=== PATIENT | male | born 1970 | race Two or more races ===

== ENCOUNTER 2016-08-09 11:07 | Observation (INO) | payer SELFPAY ==
[2016-08-09] MEDS ORDERED: Sodium Chloride 0.9% 1,000 ML IV STA (11:30)
--- NOTE | 2016-08-09 11:33 | ED PDOC ---
HPI: General Adult Time Seen by Provider: 08/09/16 11:20 Chief Complaint (Nursing): Syncope Chief Complaint (Provider): Syncope History Per: Patient History/Exam Limitations: no limitations Onset/Duration Of Symptoms: Days (Today) Current Symptoms Are (Timing): Better Additional Complaint(s): Pt. was at a court for landlord/tenant issues. He started getting light-headed , had a nonbloody vomit episode and then next thing he knows, he is in the ambulance. Pt. states his back is hurting across lower, similar to old. No new injury. Has urgency of urination, last urination was 2 hrs ago. Has mild abd pain across lower. No numbness, tingles, incontinence, constipation. No dyspnea, chest pain, headaches. Not dizzy currently. No dyspnea. Past Medical History Reviewed: Nursing Documentation, Vital Signs Vital Signs: Last Vital Signs Temp 99.1 F 08/09/16 11:12 Pulse 92 H 08/09/16 11:12 Resp 20 08/09/16 11:12 BP 152/96 H 08/09/16 11:12 Pulse Ox 100 08/09/16 14:24 - Medical History PMH: Anxiety, Back Problems, Depression, HTN - Surgical History Surgical History: No Surg Hx - Family History Family History: States: Unknown Family Hx - Social History Current smoker - smoking cessation education provided: No Alcohol: None Drugs: Denies - Allergies Allergies/Adverse Reactions: Allergies Allergy/AdvReac Type Severity Reaction Status Date / Time No Known Allergies Allergy Verified 08/09/16 11:23 Review of Systems ROS Statement: Except As Marked, All Systems Reviewed And Found Negative Cardiovascular: Positive for: Light Headedness Gastrointestinal: Positive for: Nausea, Vomiting, Abdominal Pain Musculoskeletal: Positive for: Back Pain Neurological: Positive for: Dizziness Physical Exam - Reviewed Nursing Documentation Reviewed: Yes Vital Signs Reviewed: Yes - Physical Exam Appears: Positive for: Non-toxic, No Acute Distress Head Exam: Positive for: ATRAUMATIC, NORMAL INSPECTION, NORMOCEPHALIC Skin: Positive for: Normal Color, Warm, DRY Eye Exam: Positive for: EOMI, Normal appearance, PERRL ENT: Positive for: Normal ENT Inspection Neck: Positive for: Normal, Painless ROM, Supple Cardiovascular/Chest: Positive for: Regular Rate, Rhythm. Negative for: Edema Respiratory: Positive for: CNT, Normal Breath Sounds Gastrointestinal/Abdominal: Positive for: Normal Exam, Bowel Sounds, Soft, Tenderness (mild diffuse) Back: Positive for: Other (mild across lower) Extremity: Positive for: Normal ROM. Negative for: Tenderness, Pedal Edema Neurologic/Psych: Positive for: Alert, Oriented - Laboratory Results Result Diagrams: 08/09/16 12:03 08/09/16 12:03 Interpretation Of Abn Labs: 24.1 wbc - ECG ECG: Positive for: Interpreted By Me, Viewed By Me ECG Rhythm: Positive for: Normal QRS, Normal ST Segment, Sinus Rhythm O2 Sat by Pulse Oximetry: 100 Pulse Ox Interpretation: Normal - CT Scan/US ct Other Rad Studies (CT/US): Read By Radiologist Other Rad Interpretation: age indeterminant compression findings of L4, L5 - Progress ED Course And Treament: 1157: Being aggressive and does not want any blood work and evaluation. Demanding meds. Pt. now states he is trying to kick off heroine. 1410: Stable. Moving around and walking with no issues. Wants to go against medical advice and wants to go home. Pt. aware of findings and wbc elevation. Refusing any treatment and further evaluation. 1420: Stable. Now states he will stay for further evaluation. Pt. aggressive to staff. Will give ativan, 1mg. Will need admit for withdrawal and syncope; elevated wbc likely from withdrawal. 1450: Spoke with Dr. Kumar. Will admit tele. Stable. AAOx3. Disposition - Clinical Impression Clinical Impression: Opiate withdrawal, Back pain, Syncope - Patient ED Disposition Is Patient to be Admitted: Yes Counseled Patient/Family Regarding: Studies Performed, Diagnosis - Disposition Disposition Time: 14:24 Condition: FAIR - Pt Status Changed To: Hospital Disposition Of: Observation - POA Present On Arrival: None
--- NOTE | 2016-08-09 12:29 | CT ---
PROCEDURE: CT HEAD WITHOUT CONTRAST. HISTORY: headache COMPARISON: None available. TECHNIQUE: Axial computed tomography images were obtained through the head/brain without intravenous contrast. Coronal and sagittal reconstructed images.. Radiation dose: Total exam DLP = 1288.32 mGy-cm. This CT exam was performed using one or more of the following dose reduction techniques: Automated exposure control, adjustment of the mA and/or kV according to patient size, and/or use of iterative reconstruction technique. FINDINGS: HEMORRHAGE: No intracranial hemorrhage. BRAIN: No mass effect or edema. No atrophy or chronic microvascular ischemic changes. VENTRICLES: Unremarkable. No hydrocephalus. CALVARIUM: Unremarkable. PARANASAL SINUSES: Mucous retention cyst left maxillary sinus. Chronic ethmoid air cell disease bilaterally left greater than right. MASTOID AIR CELLS: Unremarkable as visualized. No inflammatory changes. OTHER FINDINGS: None. IMPRESSION: No acute intracranial abnormalities. No significant findings to account for the clinical presentation.
[2016-08-09 12:33] LABS: BASO % 0.2 % (0.0-2.0); EOS % 0.1 % (0.0-4.0); LYMPH # 2.1 K/uL (1.0-4.3); LYMPH % 8.8 % (20.0-40.0); MEAN CELL VOLUME 88.2 fl (80.0-94.0); MEAN CORPUSCULAR HEMOGLOBIN 30.6 pg (27.0-31.0); MEAN CORPUSCULAR HGB CONC 34.7 g/dL (33.0-37.0); MEAN PLATELET VOLUME 7.7 fl (7.2-11.7); MONO # 1.4 K/uL (0.0-0.8); MONO % 5.9 % (0.0-10.0); NEUT # 20.4 K/uL (1.8-7.0); NRBC % 0.1 % (0.0-0.0); PLATELET COUNT 338 K/uL (130-400); WHITE BLOOD COUNT 24.1 K/uL (4.8-10.8)
[2016-08-09 12:42] LABS: ALCOHOL SERUM < 10 mg/dl (0-10); ALKALINE PHOSPHATASE 104 U/L (38-126); ALT/SGPT 38 U/L (21-72); AST/SGOT 47 U/L (17-59); BLOOD UREA NITROGEN 8 mg/dl (9-20); CALCIUM 9.9 mg/dL (8.4-10.2); CARBON DIOXIDE 23 mmol/L (22-30); CHLORIDE 102 mmol/L (98-107); GFR AFRICAN-AMERICAN > 60; GLUCOSE,RANDOM 126 mg/dL (75-110); LIPASE 135 U/L (23-300); SODIUM 143 mmol/l (132-148); TOTAL PROTEIN 8.7 G/DL (6.3-8.2)
--- NOTE | 2016-08-09 13:03 | CT ---
PROCEDURE: CT Abdomen and Pelvis without intravenous contrast HISTORY: R/O stone COMPARISON: None. TECHNIQUE: Without contrast.. Contrast Dose: 0 Radiation dose: Total exam DLP = 1487.39 mGy-cm. This CT exam was performed using one or more of the following dose reduction techniques: Automated exposure control, adjustment of the mA and/or kV according to patient size, and/or use of iterative reconstruction technique. FINDINGS: LOWER THORAX: Very small hiatal hernia. LIVER: Hepatomegaly. The liver measures 22.3 cm craniocaudal. Smooth contour. No mass. No biliary ductal dilatation. GALLBLADDER AND BILE DUCTS: Unremarkable. PANCREAS: Unremarkable. No gross lesion or ductal dilatation. SPLEEN: Unremarkable. ADRENALS: Unremarkable. No mass. KIDNEYS AND URETERS: Unremarkable. No hydronephrosis. No solid mass. No renal or ureteral calculus. VASCULATURE: Unremarkable. No aortic aneurysm. BOWEL: Unremarkable. No obstruction. No gross mural thickening. APPENDIX: Not identified. No secondary findings to suggest acute appendicitis. However, evaluation is limited by the absence of oral contrast. PERITONEUM: Unremarkable. No free fluid. No free air. LYMPH NODES: Unremarkable. No enlarged lymph nodes. BLADDER: Unremarkable. REPRODUCTIVE: Normal prostate BONES: Mild central compression deformity of L5 vertebra, age indeterminate. Compression deformity of superior L4 vertebral endplate, age indeterminate. No significant bony retropulsion or spinal stenosis. OTHER FINDINGS: None. IMPRESSION: Hepatomegaly. No evidence of urinary calculus or urinary tract obstruction. Mild compression deformity of L4 and L5 vertebrae as above without significant bony retropulsion.
[2016-08-09 13:38] LABS: NEUTROPHIL 81 % (42-75); REACTIVE LYMPHOCYTES 1 % (0-0); TOTAL CELLS COUNTED 100
--- NOTE | 2016-08-09 15:56 | CP.PCM.HP ---
History of Present Illness - History of Present Illness History of Present Illness: 46 yo male with no significant PMH aside from chronic back pain brought in after syncopal episode during court hearing earlier today. Patient was out for about 2 minutes, then was able to regain consciousness spontaneously. There was no urinary incontinence nor confusion upon waking up. He admitted using Heroin frequently, last dose was 1 vial IV this morning around 8am before going to court. Complained of mild abdominal pain, multiple bouts of vomiting and diarrhea. Present on Admission - Present on Admission Any Indicators Present on Admission: No History of DVT/PE: No History of Uncontrolled Diabetes: No Urinary Catheter: No Decubitus Ulcer Present: No Review of Systems - Review of Systems Systems not reviewed;Unavailable: Uncooperative Past Patient History - Infectious Disease Hx of Infectious Diseases: None - Past Social History Alcohol: None Drugs: Opiates - CARDIAC Hx Hypertension: Yes - PSYCHIATRIC Hx Anxiety: Yes Hx Depression: Yes Meds Allergies/Adverse Reactions: Allergies Allergy/AdvReac Type Severity Reaction Status Date / Time No Known Allergies Allergy Verified 08/09/16 11:23 Physical Exam - Constitutional Appears: Agitated, Other (diaphoretic) - Head Exam Head Exam: ATRAUMATIC - Eye Exam Eye Exam: absent: Scleral icterus - ENT Exam ENT Exam: Mucous Membranes Moist - Neck Exam Neck exam: Negative for: Meningismus - Respiratory Exam Respiratory Exam: absent: Rhonchi, Wheezes, Respiratory Distress - Cardiovascular Exam Cardiovascular Exam: REGULAR RHYTHM, +S1, +S2 - GI/Abdominal Exam GI & Abdominal Exam: Soft. absent: Tenderness - Rectal Exam Rectal Exam: Deferred - Extremities Exam Extremities exam: Negative for: pedal edema - Back Exam Back exam: absent: tenderness - Neurological Exam Neurological exam: Alert - Psychiatric Exam Psychiatric exam: Agitated, Anxious - Skin Skin Exam: Diaphoretic Results - Vital Signs Recent Vital Signs: Last Vital Signs Temp 99.1 F 08/09/16 11:12 Pulse 92 H 08/09/16 11:12 Resp 20 08/09/16 11:12 BP 152/96 H 08/09/16 11:12 Pulse Ox 100 08/09/16 14:50 - Labs Result Diagrams: 08/09/16 12:03 08/09/16 12:03 Assessment & Plan (1) Opiate withdrawal Status: Acute Comment: place on observation in telemetry. Clonidine 0.1mg PO q 4hrs, hold for SBP < 110. Ativan 1mg IV q 4hrs prn for agitation. Zofran 4mg IV q 4hrs prn for vomiting/nausea (2) Syncope Status: Acute Comment: serial Troponin and EKG. blood culture x 2. CT scan of head without contrast
[2016-08-09] MEDS: Sodium Chloride 0.9% 1,000 ML IV SCH ×2 (17:00→22:31)
--- NOTE | 2016-08-09 20:07 | CARD ---
APPROVED REPORT EKG Measurement Heart [id number] [place] [id number] [id number] <Conclusion> Normal sinus rhythm Normal ECG
[2016-08-10 00:28] VITALS: RESP 20
[2016-08-10] MEDS: Sodium Chloride 0.9% 1,000 ML IV SCH (01:34)
[2016-08-10 07:06] LABS: BASO % 0.3 % (0.0-2.0); EOS % 0.1 % (0.0-4.0); HEMATOCRIT 44.8 % (35.0-51.0); LYMPH % 17.7 % (20.0-40.0); MEAN CELL VOLUME 89.6 fl (80.0-94.0); MEAN CORPUSCULAR HEMOGLOBIN 29.9 pg (27.0-31.0); MEAN CORPUSCULAR HGB CONC 33.3 g/dL (33.0-37.0); MEAN PLATELET VOLUME 7.8 fl (7.2-11.7); MONO # 1.6 K/uL (0.0-0.8); MONO % 9.5 % (0.0-10.0); NEUT # 12.1 K/uL (1.8-7.0); NEUT % 72.4 % (50.0-75.0); RED CELL DISTRIBUTION WIDTH 15.9 % (11.5-14.5); WHITE BLOOD COUNT 16.7 K/uL (4.8-10.8)
[2016-08-10 07:21] LABS: BLOOD UREA NITROGEN 12 mg/dl (9-20); CALCIUM 9.1 mg/dL (8.4-10.2); CARBON DIOXIDE 23 mmol/L (22-30); CHLORIDE 106 mmol/L (98-107); GFR AFRICAN-AMERICAN > 60; GLUCOSE,RANDOM 125 mg/dL (75-110); POTASSIUM 3.9 MMOL/L (3.6-5.0); SODIUM 143 mmol/l (132-148)
[2016-08-10 08:29] VITALS: BP 152/91; PULSE 113; TEMP 97.7; O2SAT 100
[2016-08-10] MEDS ORDERED: Pantoprazole 40 mg EC Tab PO SCH (09:00)
[2016-08-10] MEDS ORDERED: Enoxaparin 40 mg Syringe SC SCH (09:00)
--- NOTE | 2016-08-10 17:38 | CP.PCM.DIS ---
Provider - Provider Date of Admission: 08/09/16 14:50 Attending physician: Reji Kumar MD Primary care physician: Tobi Maxwell DO Time Spent in preparation of Discharge (in minutes): 15 Diagnosis - Discharge Diagnosis (1) Opiate withdrawal Status: Acute (2) Heroin abuse Status: Chronic (3) Syncope Status: Acute (4) Leukocytosis Status: Acute Hospital Course - Lab Results Lab Results: Micro Results 08/09/16 16:30 Blood-Venous Blood Culture - Preliminary NO GROWTH AFTER 24 HOURS 08/09/16 16:50 Blood-Venous Blood Culture - Preliminary NO GROWTH AFTER 24 HOURS Most Recent Lab Values WBC 16.7 K/uL (4.8-10.8) H 08/10/16 05:45 RBC 5.01 Mil/uL (4.40-5.90) 08/10/16 05:45 Hgb 14.9 g/dL (12.0-18.0) 08/10/16 05:45 Hct 44.8 % (35.0-51.0) 08/10/16 05:45 MCV 89.6 fl (80.0-94.0) 08/10/16 05:45 MCH 29.9 pg (27.0-31.0) 08/10/16 05:45 MCHC 33.3 g/dL (33.0-37.0) 08/10/16 05:45 RDW 15.9 % (11.5-14.5) H 08/10/16 05:45 Plt Count 332 K/uL (130-400) 08/10/16 05:45 MPV 7.8 fl (7.2-11.7) 08/10/16 05:45 Neut % (Auto) 72.4 % (50.0-75.0) 08/10/16 05:45 Lymph % (Auto) 17.7 % (20.0-40.0) L 08/10/16 05:45 Izard % (Auto) 9.5 % (0.0-10.0) 08/10/16 05:45 Eos % (Auto) 0.1 % (0.0-4.0) 08/10/16 05:45 Baso % (Auto) 0.3 % (0.0-2.0) 08/10/16 05:45 Neut # 12.1 K/uL (1.8-7.0) H 08/10/16 05:45 Lymph # 3.0 K/uL (1.0-4.3) 08/10/16 05:45 Izard # 1.6 K/uL (0.0-0.8) H 08/10/16 05:45 Eos # 0.0 K/uL (0.0-0.7) 08/10/16 05:45 Baso # 0.0 K/uL (0.0-0.2) 08/10/16 05:45 Neutrophils % (Manual) 81 % (42-75) H 08/09/16 12:03 Band Neutrophils % 2 % (0-2) 08/09/16 12:03 Lymphocytes % (Manual) 6 % (20-50) L 08/09/16 12:03 Reactive Lymphs % 1 % (0-0) H 08/09/16 12:03 Monocytes % (Manual) 10 % (0-10) 08/09/16 12:03 Platelet Estimate Normal (NORMAL) 08/09/16 12:03 Anisocytosis (manual) Slight 08/09/16 12:03 Sodium 143 mmol/l (132-148) 08/10/16 05:45 Potassium 3.9 MMOL/L (3.6-5.0) 08/10/16 05:45 Chloride 106 mmol/L (98-107) 08/10/16 05:45 Carbon Dioxide 23 mmol/L (22-30) 08/10/16 05:45 Anion Gap 18 (10-20) 08/10/16 05:45 BUN 12 mg/dl (9-20) 08/10/16 05:45 Creatinine 0.6 mg/dL (0.8-1.5) L 08/10/16 05:45 Est GFR ( Amer) > 60 08/10/16 05:45 Est GFR (Non-Af Amer) > 60 08/10/16 05:45 POC Glucose (mg/dL) 128 mg/dL (65-110) H 08/09/16 12:22 Random Glucose 125 mg/dL (75-110) H 08/10/16 05:45 Calcium 9.1 mg/dL (8.4-10.2) 08/10/16 05:45 Total Bilirubin 1.0 mg/dl (0.2-1.3) 08/09/16 12:03 AST 47 U/L (17-59) 08/09/16 12:03 ALT 38 U/L (21-72) 08/09/16 12:03 Alkaline Phosphatase 104 U/L (38-126) 08/09/16 12:03 Troponin I < 0.0120 ng/mL (0.00-0.120) 08/09/16 12:03 Total Protein 8.7 G/DL (6.3-8.2) H 08/09/16 12:03 Albumin 4.4 g/dL (3.5-5.0) 08/09/16 12:03 Globulin 4.3 gm/dL (2.2-3.9) H 08/09/16 12:03 Albumin/Globulin Ratio 1.0 (1.0-2.1) 08/09/16 12:03 Lipase 135 U/L (23-300) 08/09/16 12:03 Alcohol, Quantitative < 10 mg/dl (0-10) 08/09/16 12:03 - Hospital Course Hospital Course: 46 y/o gent with Hx of Heroin Abuse , was brought in after a Syncopal episode. Pt was noted to be having Heroin withdrawal sxs. Started on IVF, Ativan and Clonidine for withdrawal sxs. CT of head : neg, Troponin negative SW consulted for referal to Detox program. Pt eloped and i was unable to see him and unable to complete his work up. (1) Opiate withdrawal Status: Acute observed in Telemetry started on IVF hydration, Ativan and Clonidine SW consult for Detox referral Pt was tachycardic, hypertensive, agitated and was having abd cramps and diarrhea w/c improved with the Ativan and Clonidine CT of abd : neg (2) Heroin abuse Status: Chronic (3) Syncope Status: Acute CT of head : neg Trop : neg no abn rhythm on Tele (4) Leukocytosis prob reactive Status: Acute no signs of infection Discharge Exam - Head Exam Additional comments: Unable to examine pt as he eloped Discharge Plan - Follow Up Plan Condition: IMPROVED Disposition: ELOPED FROM NURSING UNIT
== END 2016-08-10 10:30 | disposition left against medical advice (07) ==
LOC: H.ER 11:07 → H.ERHOLD 14:50 → H.TEL 21:42
DX: F11.23 Opioid dependence with withdrawal (principal); D72.829 Elevated white blood cell count, unspecified; I10 Essential (primary) hypertension; F41.9 Anxiety disorder, unspecified; F32.9 Major depressive disorder, single episode, unspecified; G89.29 Other chronic pain; R55 Syncope and collapse
CPT/HCPCS: 36415; 70450; 74176; 80048; 80053; 82948; 83690; 84484; 85025; 87040; 93005; 96374; 99285; G0378; G0480; J1650; J1885; J2060; J2405; J7040